=== PATIENT | male | born 1970 ===

== ENCOUNTER 2023-11-28 17:03 | Outpatient (REF) | payer SELFPAY ==
[2023-11-28 17:59] LABS: Hemoglobin A1C 5.3 % (<5.7)
[2023-11-28 18:10] LABS: ALT 39 U/L (16-63); AST 22 U/L (15-37); Albumin 4.2 g/dL (3.4-5.0); Alkaline Phosphatase 53 U/L (46-116); Anion Gap 7.1 mmol/L (3-11); BUN 12 mg/dL (7-18); Bilirubin, Total 2.04 mg/dL (0.2-1.0); CO2 29.9 mmol/L (21.0-32.0); CREATININE 1.2 mg/dL (0.70-1.30); Calculated LDL 145 mg/dL (<100); Chloride 104 mmol/L (98-107); Cholesterol 211 mg/dL (<200); Estimated GFR 73.22 (mL/min/1.73m2); Glucose 93 mg/dL (74-106); HDL Cholesterol 43 mg/dL (40-60); Potassium 4.2 mmol/L (3.5-5.1); Sodium 141 mmol/L (136-145); Total Protein 7.2 g/dL (6.4-8.2); Triglyceride 118 mg/dL (<150)
== END 2023-11-28 17:04 | disposition home or self-care (01) ==
LOC: NCHCN 17:03
PROVIDERS: Visit Provider Family Medicine
DX: Z68.31 Body mass index [BMI] 31.0-31.9, adult (principal); Z13.220 Encounter for screening for lipoid disorders; E66.9 Obesity, unspecified
CPT/HCPCS: 80053; 80061; 83036

== ENCOUNTER 2024-11-15 14:04 | Outpatient (CLI) | payer BC, SELFPAY ==
--- NOTE | 2024-11-15 15:25 | DI.RAD_ITS ---
Exam(s) XR KNEE RT 3V AP,LAT,MARY EXAM: XR KNEE RT 3V AP,LAT,MARY CLINICAL HISTORY: PAIN RT KNEE M25.561. TECHNIQUE: 2D digital imaging was performed. COMPARISON: No exams were available for comparison FINDINGS: 3 views No evidence fracture but there is a joint effusion signifying possible internal derangement. There are moderate degenerative changes in the lateral compartment. Milder degenerative changes in the patellofemoral compartment and medial compartment. Bone density normal. No osseous lesions IMPRESSION: Some degenerative change. No fracture but joint effusion noted with this signifying possible internal derangement. DATA REPOSITORY: RADIATION DOSE DELIVERED:
== END 2024-11-15 14:24 ==
LOC: DI 11-25 14:05
PROVIDERS: PCP Family Medicine; Visit Provider Physician Assistant Medical
DX: M25.561 Pain in right knee (principal)
CPT/HCPCS: 73562

== ENCOUNTER 2025-01-24 08:21 | Outpatient (REF) | payer BC, SELFPAY ==
[2025-01-24 16:32] LABS: ALT 27 U/L (16-63); AST 17 U/L (15-37); Albumin 3.8 g/dL (3.4-5.0); Alkaline Phosphatase 62 U/L (46-116); Anion Gap 9.6 mmol/L (3-11); BUN 11 mg/dL (7-18); Bilirubin, Total 2.3 mg/dL (0.2-1.0); CO2 29.4 mmol/L (21.0-32.0); Calcium 9.1 mg/dL (8.5-10.1); Calculated LDL 149 mg/dL (<100); Chloride 103 mmol/L (98-107); Cholesterol 209 mg/dL (<200); Estimated GFR 80.77 (mL/min/1.73m2); Glucose 104 mg/dL (74-106); HDL Cholesterol 39 mg/dL (>or=40); Potassium 4.0 mmol/L (3.5-5.1); Sodium 142 mmol/L (136-145); Total Protein 7.0 g/dL (6.4-8.2); Triglyceride 106 mg/dL (<150)
[2025-01-24 22:35] LABS: PSA, Screening 0.8 ng/mL (<=3.5)
== END 2025-01-24 08:22 | disposition home or self-care (01) ==
LOC: NCHCN 08:21
PROVIDERS: PCP Family Medicine; Visit Provider Family Medicine
DX: Z12.5 Encounter for screening for malignant neoplasm of prostate (principal); Z13.220 Encounter for screening for lipoid disorders; R17 Unspecified jaundice
CPT/HCPCS: 80053; 80061; 84153

== ENCOUNTER 2025-02-15 10:39 | Outpatient (REF) | payer BC, SELFPAY ==
[2025-02-15 16:02] LABS: Bilirubin, Direct 0.5 mg/dL (<=0.3)
== END 2025-02-15 10:40 | disposition home or self-care (01) ==
LOC: NCHCN 10:39
PROVIDERS: PCP Family Medicine; Visit Provider Family Medicine
DX: R17 Unspecified jaundice (principal)
CPT/HCPCS: 82247; 82248